=== PATIENT | female | born 1955 | race Caucasian/White ===

== ENCOUNTER 2025-08-27 10:31 | Observation (INO) | payer MEDICARE, SELFPAY ==
[2025-08-27] VITALS (26 sets, daily range): BP systolic 130–201; BP diastolic 67–157; PULSE 69–97; RESP 11–27; TEMP 36.1–36.7; O2SAT 94–100; BMI 48.5; BMI 45.7
--- NOTE | 2025-08-27 11:18 | EKG12_ITS ---
Test Reason : VISION ISSUE Blood Pressure : */* mmHG Vent. Rate : 76 BPM Atrial Rate : 76 BPM P-R Int : 160 ms QRS Dur : 88 ms QT Int : 382 ms P-R-T Axes : 51 15 41 degrees QTcB Int : 429 ms Normal sinus rhythm Normal ECG Confirmed by Artie Boateng ([id number]), newspaper editor RAJENDRA LOZANO ([id number]) on 08/30/2025 1:02:53 PM Referred By: Confirmed By: Artie Boateng
--- NOTE | 2025-08-27 11:38 | EDS_ITS ---
HPI History of Present Illness Chief Complaint: Eye Problem Narrative Narrative: Pt is a 70-year-old female who is presenting to the ER today with chief complaint/concern of left central retinal artery occlusion. Patient woke up yesterday morning, unable to see out of her left eye. Patient was seen and evaluated at the [facility] by Dr. Clifton (sp?) patient was sent to the ER to have a stroke evaluation. Patient blood pressure was elevated in the office as well, 190/110. Patient takes baby aspirin daily, she did not have her aspirin today. Patient has no headache, no pain. Patient has a painless loss of vision to the left eye that occurred yesterday morning, over 24 hours ago. Patient had a complete eye exam in the office and patient's left eye was dilated. Patient did not want her right eye dilated. Patient drove to the office, patient drove to the ER today. She has had no recent falls or head injuries. Patient does take blood pressure medication. Patient states her blood pressure usually averages in the 130s?150s//and from the 80s?100s. Patient has no history of TIA, stroke or vision changes. Patient has minimal vision to the left lower quadrant, otherwise she has complete loss of vision from the left eye. Patient takes blood pressure medication, Lasix, she is not diabetic, does not take cholesterol medication. Patient has chronic bilateral lower extremity lymphedema. She currently has no headache, no chest pain or shortness of breath. No abdominal pain nausea vomiting. No acute complaints. REVIEW OF SYSTEMS: Unless otherwise stated in this report the patient's positive and negative responses for review of systems for constitutional, eyes, ENT, cardiovascular, respiratory, gastrointestinal, neurological, , musculoskeletal, and integument systems and related systems to the presenting problem are either stated in the history of present illness or were not pertinent or were negative for the symptoms and/or complaints related to the presenting medical problem. Nurse's notes and vital signs reviewed. The patient is not hypoxic. Vital signs reviewed and patient is not hypoxic. General: The patient appears well and in no apparent distress. Patient is resting comfortably on cart. Not toxic, lethargic, or listless. Skin: Warm, dry, no pallor noted. There is no rash noted. Head: Normocephalic, atraumatic Eye: Normal conjunctiva, no drainage, EOMI. PERRL. Patient's left eye is dilated, this was done in the office by the eye physician. Patient has minimal vision to the left lower quadrant, otherwise loss of vision in all other mckinnon. Patient has no loss of vision to the right eye. Left eye shows no redness, s welling, no foreign bodies noted. No signs of swelling or infection around the left eye. Ears, Nose, Mouth, and Throat: oral mucosa is moist. Nares patent. Mouth without vesicles. Cardiovascular: Regular Rate and Rhythm, no murmurs, gallops, or rubs Respiratory: Patient is in no distress, no accessory muscle use, lungs are clear to auscultation, no wheezing, rales or rhonchi Back: non-tender, no CVA tenderness bilaterally to percussion. NO CTLS midline or paraspinal tenderness to palpation. GI: Soft, no tenderness to palpation, no masses appreciated. No rebound, guarding, or rigidity noted. Musculoskeletal: The patient has full range of motion of all extremities and joints with no difficulty. Patient has no motor, no sensory deficits. Neurological: A&O x4, normal speech, no focal neurological deficits. NIH 1, 1 for vision of partial hemianopia of the left eye. Patient has no other acute strokelike findings. Psychiatric: [facility] Medical History (Updated 08/27/25 @ 14:[address] Joel Luong, ) Lymphedema Obesity, Class III, BMI 40-49.9 (morbid obesity) CKD stage 3a, GFR 45-59 ml/min HTN (hypertension) Medical History no medical history Home Medications ?Medication ?Instructions ?Recorded ?Last Taken ?Type furosemide 40 mg tablet 20 mg PO DAILY 08/27/25 10/ History ketoconazole 2 % topical cream 1 applic topical Unknown History metoprolol succinate 100 mg 100 mg PO DAILY 08/27/25 1 History tablet,extended release 24 hr naltrexone 4.5 mg capsule (Naltrex) 4.5 mg PO DAILY pa in 08/27/25 Unknown History nystatin 100,000 unit/gram topical 1 applic topical 4X /DAY 08/27/25 Unknown History powder potassium chloride 20 mEq 20 meq PO DAILY 08/27/25 History tablet,extended release(part/cryst) Allergy/AdvReac Type Severity Reaction Status Date / Time metronidazole (From Flagyl) Allergy OTHER Verified 08/27/25 10:34 Family History no significant family his Surgical History no surgical history Social History (Updated 08/27/25 @ 14:[address] Joel Luong, DO) Smoking Status: Current some day smoker tobacco type: cigarettes alcohol intake: current alcohol intake frequency: holidays/special occasions only substance use type: does not use EXAM Physical Exam Const Vital Signs: 08/27/25 10:34 08/27/25 11:33 Temperature 98.1 F Temperature Source Oral Pulse Rate 77 Respiratory Rate 16 Blood Pressure 201/104 H Blood Pressure Mean 136 Pulse Ox 97 Oxygen Delivery Method Room Air Room Air MDM MDM MDM Narrative Medical decision making narrative: Patient seen and examined: Patient to have IV labetalol, patient will have stroke evaluation CT head, CTA head and neck, patient is already had a complete eye examination at the physician office. Differential diagnosis includes but is not limited to: Left eye retinal central artery occlusion, TIA, stroke, hypertensive emergency, ACS, Relevant laboratory interpretation: Patient's BUN and creatinine were 26/1.26. Radiological studies: CT of the head, CTA of the head and neck showed no acute findings. Patient was made aware of the small 6 mm questionable aneurysm. She was given copies of her reports as well. Reevaluation: 1200 I have spoken to the stroke neurologist from [facility], Dr. Peterson. He recommended the patient may stay at [facility], to give patient aspirin, perform cholesterol workup and possibly start her on a statin, and perform MRI of the brain. Patient was given 1 dose of labetalol, her blood pressure has maintained in appropriate range since labetalol was given. Patient was given the CARBOGEN therapy by respiratory staff which was helpful. Patient believes that her eyesight has slightly improved the left lower quadrant and left lateral quadrant of her left eye. Social barriers to healthcare: There are no food insecurities, there is no issue with transportation, there are no insurance barriers Disposition: Patient will be admitted for further evaluation and testing. According to policy [facility], patient will receive CARBOGEN therapy. This is a policy that is set up for central retinal artery occlusion. 1150 Stroke [facility] neuro has been paged to discuss patient's case. 1200 I have spoken to stroke neurologist, Dr. Peterson Report is been given to Dr. Luong. He agrees with admission and saw and evaluated the patient in the ER. Critical care time 35 minutes exclusive from separate billable procedures that were performed. The following was considered in the determination of critical care but not limited to the level of medical decision making, intensive cardiac and/or respiratory monitoring, frequent vital sign monitoring, evaluation of laboratory studies, evaluation of radiographic studies, oxygen monitoring, and constant monitoring and speaking to family at bedside Discharge Plan Dx/Rx/DC Orders Clinical Impression: Central retinal artery occlusion of left eye, Hypertensive emergency Disposition Disposition: Acute Care [facility] Discharge Date/Time: 08/27/25 15:53
--- NOTE | 2025-08-27 12:04 | CPS ---
BP at start of Carbogen: 183/90 5 minutes of Carbogen:178/95 10 minutes of Carbogen: 176/76 15 minutes of therapy: error on cuff x 3 Patient denies and sob or dizziness.
[2025-08-27 12:09] LABS: Hematocrit 38.5 % (37-47); Hemoglobin 12.4 g/dL (12.0-15.0); Immature Granulocytes Count 0.060 X10^3/uL (0.0-0.0); Mean Corp Hgb Conc 32.2 g/dL (32-36); Mean Corpuscular Volume 94.1 fL (81-99); Mean Platelet Vol. 10.3 fl (6.2-12.0); NRBC Flagged by Analyzer 0 % (0-5); Platelet Count 374 K/mm3 (150-450); RBC Distribution Width CV 14.2 % (11.6-14.6); RBC Distribution Width SD 49.5 fl (35.1-43.9); Red Blood Count 4.09 M/mm3 (4.2-5.4); White Blood Count 10.4 K/mm3 (4.4-11.0)
[2025-08-27 12:13] LABS: Prothrombin Time (Protime)PT. 14.6 SECONDS (11.7-14.9)
[2025-08-27 12:14] LABS: Partial Thromboplast Time 27.9 Seconds (24.1-36.2)
--- NOTE | 2025-08-27 12:17 | CT_ITS ---
PROCEDURE: STROKE CTA HEAD AND NECK W/CON 08/27/2025 REASON FOR EXAM: NEURO DEFICIT, ACUTE, STROKE SUSPECTED TECHNIQUE: Procedure Code: CTCTA.ST.HN Modality: CT Procedure: STROKE CTA HEAD AND NECK W/CON Multiplanar Sagittal and Coronal images were obtained. CONTRAST: Isovue 370 VOLUME: 98 mL One or more dose reduction techniques were used (e.g., Automated exposure control, adjustment of the mA and/or kV according to patient size, use of iterative reconstruction technique). RADIATION DOSE SUMMARY: CTDlvol: 44.99 mGy DLP: 1710.44 mGycm COMPARISON: CT head from the same day FINDINGS: Intracranial structures are grossly unremarkable. Orbits are unremarkable. Paranasal sinuses and mastoid air cells are clear. Facial soft tissues and salivary glands are unremarkable. The thyroid gland is unremarkable aside from a 1.1 cm nodule on the left. No neck adenopathy. The visualized superior mediastinum and heart is unremarkable. Lung apices are clear. Cervical fusion hardware is noted. Multilevel degenerative disc disease is present. Regarding the vasculature, the aorta is unremarkable. The subclavian arteries are grossly unremarkable. The common carotid arteries are generally patent although there is mild potentially congenital narrowing on the right on image 184, series 5. This is in an area of sharp angulation however. The remainder of the common carotid artery on the right is patent and unremarkable in the neck. The left common and internal carotid artery is widely patent. The vertebral arteries in the neck are widely patent. Intracranially, the vertebrobasilar system is unremarkable with the right vertebral artery likely being dominant. The basilar artery is patent. The posterior cerebral arteries are widely patent bilaterally. The posterior communicating artery on the right is patent. It is not well seen on the left. There is mild calcification involving the carotid siphon region bilaterally. I do question an aneurysm involving the cavernous portion of the right internal carotid artery measuring up to 6 mm on image 406, series 607. It is possible this just represents tortuosity of the vessel however. Also probably present on image 120, series 607.2. The middle cerebral arteries are slightly disease bilaterally although with no definite focal stenosis present. The A1 and A2 segments of the anterior cerebral arteries are grossly patent. There may be mild narrowing of the A2 segment on the left on image 461, series 5, although this is fairly distal. The anterior communicating artery is grossly unremarkable. Please note that the ophthalmic arteries are seen bilaterally and are grossly patent. I can not definitively identify the central retinal artery on this study. The globes are grossly intact. CT/STROKE CTA Head AND Neck W/Con IMPRESSION: No definite large vessel occlusion. I do question a possible 6 mm right ICA an eurysm in the cavernous portion, although vessel tortuosity may play a role in this appearance. The ophthalmic arteries are grossly patent bilaterally. The central retinal ar teries are not definitively identified. Please see above for additional findings. Reading Location[facility]
--- NOTE | 2025-08-27 12:17 | CT_ITS ---
PROCEDURE: STROKE BRAIN/HEAD WITHOUT CONT 08/27/2025 REASON FOR EXAM: NEURO DEFICIT, ACUTE, STROKE SUSPECTED The history states left eye vision loss upon waking yesterday. Sent by eye doctor. TECHNIQUE: Procedure Code: CTBR.ST Modality: CT Procedure: STROKE BRAIN/HEAD WITHOUT CONT Coronal and Sagittal reconstruction series were provided. One or more dose reduction techniques were used (e.g., Automated exposure control, adjustment of the mA and/or kV according to patient size, use of iterative reconstruction technique. RADIATION DOSE SUMMARY: CTDlvol: 44.99 mGy DLP: 1710.44 mGycm COMPARISON: None FINDINGS: There is no acute intracranial hemorrhage or mass effect noted. 4 the ventricles and cortical sulci are grossly unremarkable. There is some faint low-attenuation in the patricia on the left on image 13, series 2 which I suspect is artifactual and/or related to volume averaging. Mild atherosclerotic calcifications are noted in the carotid siphon region bilaterally as well as likely involving the distal vertebral arteries. The orbits are grossly unremarkable. The paranasal sinuses and mastoid air cells are clear. The calvarium is intact. CT/STROKE Brain/Head without Cont IMPRESSION: No acute intracranial process. If concern for CVA persists, I recommend MRI wi th diffusion-weighted imaging. Reading Location: [facility]
[2025-08-27 12:41] LABS: Anion Gap 11 (5-15); BUN 26 mg/dL (4-19); BUN/Creat Ratio 20.3 RATIO (10-20); Calcium,Total 9.2 mg/dL (7.6-11.0); Carbon Dioxide 24.5 mmol/L (21.0-32.0); Chloride 104 mmol/L (98-108); Estimated Creatinine Clearance 56.78 ml/min (50-250); Glucose 102 mg/dL (70-99); Potassium 4.6 mmol/L (3.3-5.1); Troponin T High Sensitivity 10 ng/L (<=14)
--- NOTE | 2025-08-27 13:00 | CPS ---
Carbogen treatment #2: initial BP: 151/87 BP after 5 minutes: 132/87 BP after 15 minutes: 151/90 Patient denies any SOB or dizziness.
--- NOTE | 2025-08-27 14:15 | CPS ---
Carbogen treatment #3 Initial BP: 172/86 after 10 minutes: 170/102 Patient denies any SOB or dizziness.
--- NOTE | 2025-08-27 14:48 | ECHOD_ITS ---
Reason For Study Reason For Study: TIA/CVA Procedure This was a 2D Doppler, Color Flow transthoracic echocardiogram. Exam performed portable in ED. Left Ventricle Normal LV size. Mild concentric left ventricular hypertrophy. The left ventricular ejection fraction is 65 %. Stage 1 diastolic dysfunction. No regional wall motion abnormalities noted. Right Ventricle Normal RV size. Normal systolic function. Atria The left atrium is mildly enlarged. Normal right atrium. Mitral Valve There is moderate mitral annular calcification. Mild (1+) mitral valve insufficiency. Tricuspid Valve Normal tricuspid valve. Mild (1+) tricuspid valve insufficiency. Pulmonary artery systolic pressure is 34 mmHg. Aortic Valve Trisinus/trileaflet aortic valve. Mild focal aortic valve calcification. Pulmonic Valve Normal pulmonic valve. Trivial pulmonic valve insufficiency. Great Vessels Normal aortic root. The pulmonary artery is normal size. Inferior vena cava collapse with sniff. Pericardium/Pleural No pericardial effusion. MMode/2D Measurements & Calculations LVIDd: 4.7 cm IVSd: 1.2 cm LVOT diam: 2.0 cm LVIDs: 1.6 cm LVPWd: 1.2 cm LVOT area: 3.2 cm2 RVDd: 3.8 cm FS: 65.5 % Ao root diam: 3.5 cm LAV(MOD-bp): 71.9 ml LVAd ap4: 27.8 cm2 LAV(MOD-bp) Indexed: 31.7 ml/m2 LVLd ap4: 8.1 cm LAV(MOD-sp2): 59.7 ml EDV(MOD-sp4): 79.2 ml LAV(MOD-sp4): 85.8 ml EDV(sp4-el): 81.4 ml LVAs ap4: 15.4 cm2 LVLs ap4: 7.1 cm ESV(MOD-sp4): 28.2 ml ESV(sp4-el): 28.2 ml EF(MOD-sp4): 64.4 % EF(sp4-el): 65.3 % LVAd ap2: 29.7 cm2 SV(MOD-sp4): 51.0 ml SV(MOD-sp2): 57.1 ml LVLd ap2: 8.1 cm SI(MOD-sp4): 22.5 ml/m2 SI(MOD-sp2): 25.2 ml/m2 EDV(MOD-sp2): 90.9 ml EDV(sp2-el): 92.2 ml LVAs ap2: 16.4 cm2 LVLs ap2: 6.9 cm ESV(MOD-sp2): 33.9 ml ESV(sp2-el): 33.1 ml EF(MOD-sp2): 62.8 % SV(sp4-el): 53.2 ml LA A4 area: 25.4 cm2 RA A4 area: 17.0 cm2 TAPSE: 2.0 cm Time Measurements MV dec time: 0.22 sec Doppler Measurements & Calculations MV E max skyler: 99.2 cm/sec Lat Peak E' Skyler: 7.1 cm/sec Med Peak E' Skyler: 8.3 cm/sec MV A max skyler: 117.9 cm/sec E/E' lat: 14.0 E/E' med: 12.0 MV E/A: 0.84 MV dec slope: 447.6 cm/sec2 Ao V2 max: 207.7 cm/sec LV V1 max: 139.6 cm/sec Ao max P.3 mmHg LV V1 max P.8 mmHg Ao V2 mean: 141.4 cm/sec LV V1 mean P.4 mmHg Ao mean P.0 mmHg LV V1 mean: 98.0 cm/sec Ao V2 VTI: 45.8 cm LV V1 VTI: 32.2 cm AV (velocity ratio): 0.70 CECE(I,D): 2.3 cm2 CECE(V,D): 2.2 cm2 SV(LVOT): 103.6 ml PA V2 max: 102.5 cm/sec TR max skyler: 281.8 cm/sec TR max P.8 mmHg ECHO/Echo Complete Interpretation Summary Normal LV size. The left ventricular ejection fraction is 65 %. Mild concentric left ventricular hypertrophy. Stage 1 diastolic dysfunction. Mild (1+) mitral valve insufficiency. There is moderate mitral annular calcification. Pulmonary artery systolic pressure is 34 mmHg. Ordering Physician: Joel Luong Referring Physician: Gloria Marrero Performed By: Monserrat Rocha RDCS
--- NOTE | 2025-08-27 14:48 | MRI_ITS ---
PROCEDURE: MRI BRAIN WITHOUT CONTRAST 08/27/2025 REASON FOR EXAM: LEFT CENTRAL RETINAL ARTERY OCCLUSION. TECHNIQUE: Procedure Code: MRIBR Modality: MR Procedure: BRAIN WITHOUT CONTRAST Multiplanar and multisequential MRI of the brain was performed without contrast. COMPARISON: CT head/angiography earlier same day. FINDINGS: No regions of abnormal restricted diffusion to indicate recent infarct. Ventricular and sulcal size and configuration are within normal limits. No evidence of intracranial hemorrhage, extra-axial collection, mass-effect, or other acute abnormality. Mild scattered foci of leukoaraiosis in the cerebral white matter, age-appropriate. Major intracranial vascular flow voids appear preserved. Unremarkable appearance of the orbits. Well-aerated paranasal sinuses and bilateral mastoid air cells. MRI/Brain without Contrast IMPRESSION: No acute intracranial abnormality; no acute infarct. Reading Location: [id number]
--- NOTE | 2025-08-27 14:49 | HP.PCM.HOS_ITS ---
[facility] - General General Date of Service: 08/27/25 Chief Complaint: Left eye vision loss [facility] Narrative ALO GILLESPIE, is a 70 F who presents with left eye vision loss. This is a 70-year-old female with a history of hypertension presents with a 1 day history of left eye visual loss. Symptoms began on the but saw inventory specialist manager today who diagnosed her with a left central retinal artery occlusion and sent her to the emergency department. She said that her vision in her left eye was all dark though it has since improved on the lateral aspect of her visual field on the left eye. No right eye problems. She denies any other symptoms, no paresthesias, no headache no weakness. This has never happened before. She was evaluated by [facility] (note is currently pending but per the emergency room physician, recommended full dose aspirin which she did receive emergency room).[ ] [facility] Medical History (Updated 08/27/25 @ 14:[address] Joel Luong DO) Lymphedema Obesity, Class III, BMI 40-49.9 (morbid obesity) CKD stage 3a, GFR 45-59 ml/min HTN (hypertension) Medical History no medical history Home Medications ?Medication ?Instructions ?Recorded ?Last Taken ?Type furosemide 40 mg tablet 20 mg PO DAILY 08/27/25 10/3 History ketoconazole 2 % topical cream 1 applic topical Unknown History metoprolol succinate 100 mg 100 mg PO DAILY 08/27/25 1 History tablet,extended release 24 hr naltrexone 4.5 mg capsule (Naltrex) 4.5 mg PO DAILY pa in 08/27/25 Unknown History nystatin 100,000 unit/gram topical 1 applic topical 4X /DAY 08/27/25 Unknown History powder potassium chloride 20 mEq 20 meq PO DAILY 08/27/25 History tablet,extended release(part/cryst) Allergy/AdvReac Type Severity Reaction Status Date / Time metronidazole (From Flagyl) Allergy OTHER Verified 08/27/25 10:34 Family History no significant family his Surgical History no surgical history Social History (Updated 08/27/25 @ 14:[address] Joel Luong DO) Smoking Status: Current some day smoker tobacco type: cigarettes alcohol intake: current alcohol intake frequency: holidays/special occasions only substance use type: does not use ROS ROS Narrative Chronically fatigued. Does have chronic swelling in her lower extremities that is not been sufficiently helped by furosemide. All review of systems were negative except as mentioned above in the history of present illness and the other review of systems. Vital Signs Vital Signs Vital Signs: 08/27/25 10:34 08/27/25 11:18 08/27/25 11:33 Temperature 36.7 C Temperature Source Oral Pulse Rate 77 93 Respiratory Rate 16 17 Respiratory Pattern Blood Pressure 201/104 H 183/90 H Blood Pressure Mean 136 121 Pulse Ox 97 95 Oxygen Delivery Method Room Air Room Air Room Air 08/27/25 11:48 08/27/25 11:50 08/27/25 12:00 Temperature Temperature Source Pulse Rate 86 88 76 Respiratory Rate 20 H 19 H 11 L Respiratory Pattern Normal Blood Pressure 183/90 H 183/90 H 176/76 H Blood Pressure Mean 121 109 Pulse Ox 99 96 100 Oxygen Delivery Method 08/27/25 12:02 08/27/25 12:05 08/27/25 12:15 Temperature Temperature Source Pulse Rate 76 85 97 Respiratory Rate 14 15 18 Respiratory Pattern Blood Pressure 194/157 H Blood Pressure Mean 169 Pulse Ox 100 100 94 Oxygen Delivery Method 08/27/25 12:16 08/27/25 12:17 08/27/25 12:30 Temperature Temperature Source Pulse Rate 90 89 90 Respiratory Rate 27 H 18 20 H Respiratory Pattern Blood Pressure 176/76 H 164/77 H Blood Pressure Mean 109 102 Pulse Ox 94 98 96 Oxygen Delivery Method Room Air 08/27/25 12:45 08/27/25 13:00 08/27/25 13:00 Temperature Temperature Source Pulse Rate 77 71 77 Respiratory Rate 14 15 16 Respiratory Pattern Normal Blood Pressure 149/71 H 151/87 H 151/87 H Blood Pressure Mean 91 105 Pulse Ox 96 100 100 Oxygen Delivery Method 08/27/25 13:07 08/27/25 13:15 08/27/25 13:30 Temperature Temperature Source Pulse Rate 74 Respiratory Rate 16 Respiratory Pattern Blood Pressure 132/87 H 151/90 H Blood Pressure Mean 99 108 Pulse Ox 100 97 Oxygen Delivery Method 08/27/25 13:45 08/27/25 14:00 08/27/25 14:00 Temperature Temperature Source Pulse Rate 72 78 75 Respiratory Rate 17 16 15 Respiratory Pattern Blood Pressure 166/88 H 172/86 H 172/86 H Blood Pressure Mean 111 114 111 Pulse Ox 98 97 98 Oxygen Delivery Method Room Air 08/27/25 14:05 Temperature Temperature Source Pulse Rate 77 Respiratory Rate 18 Respiratory Pattern Normal Blood Pressure 172/86 H Blood Pressure Mean Pulse Ox 100 Oxygen Delivery Method Weight Weight: 128.367 kg Body Mass Index (BMI) 48.5 Physical Exam Narrative - Physical Exam General: Alert, Oriented x3, Cooperative HEENT: Atraumatic, PERRLA, EOMI, Normocephalic. Left eye visual field is tingling. Patient is only able to see movement in her left lateral field. Does not see anything immediately Oral: Moist Mucosa, No Gingival or Mucosal Lesions/ Ulcerations Neck: Supple, No JVD, Negative Carotid Bruits Lungs: Clear to auscultation, Normal air movement Cardiovascular: Regular rate, Normal S1, Normal S2, No murmurs Abdomen: Bowel Sounds Present, Soft, Non Tender, Non-Distended, No Hepato- splenomegaly Extremities: No clubbing, No cyanosis, Capillary Refill Less than 3 Seconds, lymphedematous changes in the lower extremities bilaterally Skin: No rashes, No breakdown Musculoskeletal: No Tenderness to Palpation of Joints or Extremities Neurological: Neuro grossly intact Psych/Mental Status: Normal Affect, Appropriate Results Lab / Micro Data Attestation: I reviewed the patient's lab results. 08/27/25 11:58 08/27/25 11:58 Labs: Laboratory Results - last 24 hr 08/27/25 11:48: POC Glucose 97 08/27/25 11:58: WBC 10.4, RBC 4.09 L, Hgb 12.4, Hct 38.5, MCV 94.1, MCH 30.3, MCHC 32.2, RDW Std Deviation 49.5 H, RDW Coeff of Johnathon 14.2, Plt Count 374, MPV 10.3, Immature Gran % (Auto) 0.600, Neut % (Auto) 76.0 H, Lymph % (Auto) 14.4 L, [place] % (Auto) 7.4, Eos % (Auto) 0.7, Baso % (Auto) 0.9, Absolute Neuts (auto) 7.9 H, Absolute Lymphs (auto) 1.50, Nucleated RBC % 0, ESR 28, PT 14.6, INR 1.1, APTT 27.9, Sodium 139, Potassium 4.6, Chloride 104, Carbon Dioxide 24.5, Anion Gap 11, BUN 26 H, Creatinine 1.26 H, Estim Creat Clear Calc 56.78, Est GFR (MDRD) Non-Af 47 L, BUN/Creatinine Ratio 20.3 H, Glucose 102 H, Calcium 9.2, Troponin T High Sens 10 EKG Initial EKG: Attestation: I personally reviewed and interpreted this EKG as follows: Prior EKG tracings: available for review EKG Rhythm Intrepretation: Sinus Rhythm Imaging Radiology Impression Brain CT 08/27/25 12:17 IMPRESSION: No acute intracranial process. If concern for CVA persists, I recommend MRI with diffusion-weighted imaging. Reading Location: [facility] Head/Neck CTA 08/27/25 12:17 IMPRESSION: No definite large vessel occlusion. I do question a possible 6 mm right ICA aneurysm in the cavernous portion, although vessel tortuosity may play a role in this appearance. The ophthalmic arteries are grossly patent bilaterally. The central retinal arteries are not definitively identified. Please see above for additional findings. Reading Location: [facility] Assessment & Plan Assessment/Plan (1) Central retinal artery occlusion of left eye: PLAN: Patient underwent head CT and CTA of the head and neck that showed no acute process. Plan is to get an MRI of the brain, 2D echocardiogram. Patient is outside of the window for TNK given late presentation. Neurology evaluated the emergency room and recommended full dose aspirin which we will continue. Continuation of consult to [facility]. Check a fasting lipid panel. Patient will need to follow-up with ophthalmology as outpatient PLAN: Plan Hypertension: Continue with furosemide and metoprolol succinate. As needed hydralazine. Chronic medical conditions * Obesity class III: Complicates care and recovery. * Lymphedema: I am concerned the patient to have pulmonary artery hypertension. Will check the echocardiogram. Continue with furosemide. * Tobacco use: Patient has cut back significantly but only smokes 2 to 3 cigarettes/week. She states that she is actively trying to change her habit to reduce her cigarette consumptionfurther VTE prophylaxis: Low risk given current observation status. CODE STATUS: Addressed with the patient. Patient wishes to be full code Charges/Coding Visit Charges Inpatient E&M: 10429 Init Hosp L2
--- NOTE | 2025-08-27 15:18 | CPS ---
Carbogen treatment #4 Initial BP: 162/78 After 5 minutes: 176/107 After treatment: 179/92 Patient denies sob/ dizziness. Patient does reports slight improvement in vision.
[2025-08-28 03:35] VITALS: BP 139/72; PULSE 84; RESP 18; TEMP 35.8; O2SAT 98
[2025-08-28 08:05] LABS: Cholesterol 166 mg/dL (<=200); Low Density Lipoprotein Calc. 88 mg/dL; Triglycerides 163 mg/dL; Very Low Density Lipoprotein 33 mg/dL (5-40); cholesterol:hdl ratio screen 3.31
[2025-08-28 08:08] LABS: CRP, High Sensitivity 3.48 mg/L (0.00-3.00)
[2025-08-28 08:29] LABS: Anion Gap 9 (5-15); BUN 24 mg/dL (4-19); BUN/Creat Ratio 18.3 RATIO (10-20); Calcium,Total 8.6 mg/dL (7.6-11.0); Carbon Dioxide 23.6 mmol/L (21.0-32.0); Chloride 106 mmol/L (98-108); Estimated Creatinine Clearance 53.08 ml/min (50-250); Glucose 98 mg/dL (70-99); Potassium 5.3 mmol/L (3.3-5.1)
--- NOTE | 2025-08-28 08:51 | DCINST_ITS ---
Discharge Instructions DC O2, CPAP, BIPAP needs Home O2 Discharge instructions: No Dressing / Incision Discharge Activity: Return to Normal Activity Weight Bearing Status: Weight bearing as tolerated Dressing / Incision Call your doctor if you observe: Fever of 101 or Higher, Coldness, Increased Pain, Numbness or Tingling, Change in Color, Inability to urinate, Inability to have a bowel movement, Shortness of breath, Dizziness, Fainting spells, Swelling in the ankles, Chest pain, Prolonged hiccupping, Increased palpitations (irregular heartbeat) and Calf discomfort Follow Up Care When: IN 2 WEEKS Test Results: Test results from this visit will be discussed in further detail at your follow- up appointment, if applicable. Discharge Plan Admission Admit Date/Time: 08/27/25 14:43 Primary Reason for Your Visit: Left eye vision loss. Partial recovery Attending Provider: Se Montenegro Primary Care Provider: Gloria Marrero Consulting Providers: Fadi Stone; Blayne Damon; Mima Palacio; Michelle Santillan; Tabby Limon; Mynor Peterson; Osiris Lau; Vitaly Navas; Rivas Lopez; Dereck Willett; Ana Villalpando; Lillie Bearden; Gunnar Echols; Jolanta Segura; Simon Feliz; Lydia Cotton; Dimas Green; Amisha Georges; Raciel Cordero; Audra García; Flor Azevedo; Joel Luong Instructions Additional Instructions / Restrictions: Follow-up on neurologist Discharge Orders/Prescriptions Prescriptions: New aspirin 325 mg Tablet 325 mg PO BREAKFAST 30 Days Qty: 30 1RF Continued furosemide 40 mg tablet 20 mg PO DAILY ketoconazole 2 % cream 1 applic topical BID metoprolol succinate 100 mg tablet extended release 24 hr 100 mg PO DAILY potassium chloride 20 mEq tablet,ER particles/crystals 20 meq PO DAILY nystatin 100,000 unit/gram powder 1 applic topical 4X/DAY PRN (Reason: yeast) Naltrex 4.5 mg capsule 4.5 mg PO DAILY Referrals / Follow Up: Gloria Marrero MD [Primary Care Provider, Pediatrics] Rod Escamilla MD [Non-Staff -Ordering Privileges, Neurology] - Within 1 Month Jong Fox MD [Med Staff - Active Staff, Opthamology] - Within 1 Week Disposition Disposition (needs filled in before D/C Order can be placed): Home, Self Care
--- NOTE | 2025-08-28 08:56 | PCM.DC.SUM ---
Providers Date of Admission: 08/27/25 Date of Discharge: 08/28/25 Primary Care Physician: Dr. Gloria Marrero MD Consultations 08/27/25 14:48 Consult: Tele-Neurology Stat Consulting Provider: [facility] Reason for Consult: Acute Ischemic Stroke/TIA EMERGENT Consult: No MD Notified: Yes Date Notified: 08/27/25 Time Notified: 14:45 Method of Notification: ED Physician Initiated Nursing Unit Staff Notify [facility] of Tele-Neurology Consult: Yes Reason For Visit: LEFT CENTRAL RETINAL ARTERY OCCLUSION Diagnosis Discharge Diagnosis (1) Central retinal artery occlusion of left eye: Status: Acute Code(s): H34.12 - Central retinal artery occlusion, left eye Plan Patient was admitted with 1 day history of decreased left eye peripheral vision. No right eye problem She was admitted in PCU. 1. Left eye central retinal occlusion: Patient underwent head CT and CTA of the head and neck that showed no acute process. MRI brain which did not show acute intracranial abnormality. 2D echo was done. Lipid profile within normal limit. Acute stroke ruled out. Most likely patient has local central retinal artery occlusion of left eye but is planned. Neurologist saw in the ED and recommended 325 mg oral daily and patient was given prescription for that. Advised follow-up with abdominal Dr. Fox in next 2 to 3 days. On vehicle monitor technician normal sinus rhythm. Hypertension: Continue with furosemide and metoprolol succinate. As needed hydralazine. Blood pressure elevated 150/75-151/87. Prescription for lisinopril ordered. Echo shows EF 65% with mild concentric LVH, mild MR stage I diastolic function suggestive of mild chronic HFpEF. Obesity class III: Complicates care and recovery. Lymphedema: Continue with furosemide. PASP 34 mmHg suggestive of mild pulmonary hypertension Tobacco use: Patient has cut back significantly but only smokes 2 to 3 cigarettes/week. She states that she is actively trying to change her habit to reduce her cigarette consumptionfurther VTE prophylaxis: Low risk given current observation status. Discharge medication reconciliation done. Discharge follow-up instructions completed. Discharge process discussed with the patient and all questions were answered to patient's satisfaction. Follow with PCP in 1 to 2 weeks Total time spent, exact 35 minutes on discharge meds reconciliation, examination, coordination of care with nurses and ancillary staff, review of imaging and blood test and discussion with the patient on follow-up instructions. 2D echo 08/27/2025 Interpretation Summary Normal LV size. The left ventricular ejection fraction is 65 %. Mild concentric left ventricular hypertrophy. Stage 1 diastolic dysfunction. Mild (1+) mitral valve insufficiency. There is moderate mitral annular calcification. Pulmonary artery systolic pressure is 34 mmHg. Medications at Discharge Home Medications furosemide 40 mg tablet 20 mg PO DAILY diuretic 08/27/25 ketoconazole 2 % topical cream 1 applic topical BID legs 08/27/25 metoprolol succinate 100 mg tablet,extended release 24 hr 100 mg PO DAILY heart 08/27/25 naltrexone 4.5 mg capsule (Naltrex) 4.5 mg PO DAILY pain 08/27/25 nystatin 100,000 unit/gram topical powder 1 applic topical 4X/DAY PRN yeast 08/27/25 potassium chloride 20 mEq tablet,extended release(part/cryst) 20 meq PO DAILY suppliment 08/27/25 aspirin 325 mg tablet 325 mg PO BREAKFAST 30 days #30 tabs 08/28/25 Hospital Course Summary of Care Provided Hospital Course: Clinical Impression(s) from Imaging Studies Brain CT 08/27/25 12:17 IMPRESSION: No acute intracranial process. If concern for CVA persists, I recommend MRI with diffusion-weighted imaging. Reading Location: [facility] Head/Neck CTA 08/27/25 12:17 IMPRESSION: No definite large vessel occlusion. I do question a possible 6 mm right ICA aneurysm in the cavernous portion, although vessel tortuosity may play a role in this appearance. The ophthalmic arteries are grossly patent bilaterally. The central retinal arteries are not definitively identified. Please see above for additional findings. Reading Location: [facility] Brain MRI 08/27/25 14:48 IMPRESSION: No acute intracranial abnormality; no acute infarct. Reading Location: [facility] Echocardiogram 08/27/25 14:48 Interpretation Summary Normal LV size. The left ventricular ejection fraction is 65 %. Mild concentric left ventricular hypertrophy. Stage 1 diastolic dysfunction. Mild (1+) mitral valve insufficiency. There is moderate mitral annular calcification. Pulmonary artery systolic pressure is 34 mmHg. Ordering Physician: Joel Luong Referring Physician: Gloria Marrero Performed By: Monserrat Rocha RDCS Physical Exam Narrative Seen and examined Patient still has decreased/fuzzy vision on left peripheral vision. 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 Atraumatic, PERRLA, EOMI, Normocephalic. Oral: No Gingival or Mucosal Lesions/ Ulcerations Neck: Supple, No JVD, Negative Carotid Bruits Chest wall/Lungs: Air entry diminished in bilateral lung bases. No crepitation/rhonchi Cardiovascular: Regular rate and rhythm, Normal S1,S2, No M/G/R Abdomen: Bowel Sounds Present, Soft, Non Tender, Non-Distended : No dysuria. No renal angle tenderness. No suprapubic tenderness. Extremities: No edema, Capillary Refill Less than 3 Seconds Skin: No rashes, No breakdown Musculoskeletal: No Tenderness to Palpation of Joints or Extremities Neurological: Cranial nerves II-XII grossly intact, DTR 2+/4. No acute focal neurological deficit. Psych/Mental Status: Normal Affect, Appropriate. Weight / BMI Weight Weight: 266 lb 8.622 oz Body Mass Index (BMI) 45.7 ABG / Lab / Microbiology Data 08/27/25 11:58 08/28/25 07:08 Laboratory: Laboratory Results - last 24 hr 08/27/25 11:58: Sodium 139, Potassium 4.6, Chloride 104, Carbon Dioxide 24.5, Anion Gap 11, BUN 26 H, Creatinine 1.26 H, Estim Creat Clear Calc 56.78, Est GFR (MDRD) Non-Af 47 L, BUN/Creatinine Ratio 20.3 H, Glucose 102 H, Calcium 9.2, Troponin T High Sens 10, C-React Prot High Sens 3.48 H 08/28/25 07:08: Sodium 138, Potassium 5.3 H, Chloride 106, Carbon Dioxide 23.6, Anion Gap 9, BUN 24 H, Creatinine 1.30 H, Estim Creat Clear Calc 53.08, Est GFR (MDRD) Non-Af 45 L, BUN/Creatinine Ratio 18.3, Glucose 98, Calcium 8.6, Triglycerides 163, Cholesterol 166, LDL Cholesterol, Calc 88, VLDL Cholesterol 33, HDL Cholesterol 50, Cholesterol/HDL Ratio 3.31 Radiography Diagnostic Testing: Radiology Impression Brain CT 08/27/25 12:17 IMPRESSION: No acute intracranial process. If concern for CVA persists, I recommend MRI with diffusion-weighted imaging. Reading Location: [facility] Head/Neck CTA 08/27/25 12:17 IMPRESSION: No definite large vessel occlusion. I do question a possible 6 mm right ICA aneurysm in the cavernous portion, although vessel tortuosity may play a role in this appearance. The ophthalmic arteries are grossly patent bilaterally. The central retinal arteries are not definitively identified. Please see above for additional findings. Reading Location: [facility] Brain MRI 08/27/25 14:48 IMPRESSION: No acute intracranial abnormality; no acute infarct. Reading Location: [facility] Echocardiogram 08/27/25 14:48 Interpretation Summary Normal LV size. The left ventricular ejection fraction is 65 %. Mild concentric left ventricular hypertrophy. Stage 1 diastolic dysfunction. Mild (1+) mitral valve insufficiency. There is moderate mitral annular calcification. Pulmonary artery systolic pressure is 34 mmHg. Ordering Physician: Joel Luong Referring Physician: lGoria Marrero Performed By: Monserrat Rocha, VASU D/C Instructions Weight Bearing Status: Weight bearing as tolerated Call your doctor if you observe: Fever of 101 or Higher, Coldness, Increased Pain, Numbness or Tingling, Change in Color, Inability to urinate, Inability to have a bowel movement, Shortness of breath, Dizziness, Fainting spells, Swelling in the ankles, Chest pain, Prolonged hiccupping, Increased palpitations (irregular heartbeat) and Calf discomfort DC O2, CPAP, BIPAP Needs Home O2 Discharge instructions: No When: IN 2 WEEKS Meaningful Use Info Meaningful Use Meaningful Use Diagnoses (Choose all that apply): None applicable Discharge Plan Admission Admit Date/Time: 08/27/25 14:43 Primary Reason for Your Visit: Left eye vision loss. Partial recovery Attending Provider: Se Montenegro Primary Care Provider: Gloria Marrero Consulting Providers: Fadi Stone; Blayne Damon; Mima Palacio; Michelle Santillan; Tabby Limon; Mynor Peterson; Osiris Lau; Vitaly Navas; Rivas Lopez; Dereck Willett; Ana Villalpando; Lillie Bearden; Gunnar Echols; Jolanta Segura; Simon Feliz; Lydia Cotton; Dimas Green; Amisha Georges; Raciel Cordero; Audra García; Flor Azevedo; Joel Luong Instructions Additional Instructions / Restrictions: Follow-up on neurologist Discharge Orders/Prescriptions Prescriptions: New aspirin 325 mg Tablet 325 mg PO BREAKFAST 30 Days Qty: 30 1RF Continued furosemide 40 mg tablet 20 mg PO DAILY ketoconazole 2 % cream 1 applic topical BID metoprolol succinate 100 mg tablet extended release 24 hr 100 mg PO DAILY potassium chloride 20 mEq tablet,ER particles/crystals 20 meq PO DAILY nystatin 100,000 unit/gram powder 1 applic topical 4X/DAY PRN (Reason: yeast) Naltrex 4.5 mg capsule 4.5 mg PO DAILY Referrals / Follow Up: Gloria Marrero MD [Primary Care Provider, Pediatrics] oRd Escamilla MD [Non-Staff -Ordering Privileges, Neurology] - Within 1 Month Jong Fox MD [Med Staff - Active Staff, Opthamology] - Within 1 Week Disposition Disposition (needs filled in before D/C Order can be placed): Home, Self Care Charges/Coding Visit Charges Inpatient E&M: 86584 Disch Hosp >30min
[2025-08-28 10:00] VITALS: BP 151/87; PULSE 65; RESP 18; TEMP 36.7; O2SAT 99
[2025-08-28] MEDS: Potassium Chloride Oral Tablet 20 MEQ PO (10:27)
[2025-08-28 10:28] VITALS: BP 151/87; PULSE 65
[2025-08-28] MEDS: 0.9% Normal Saline (1000mL) 1,000 ML 125 ML IV (10:28)
[2025-08-28] MEDS: Metoprolol(XL)Succ 100 MG Tablet PO (10:28)
[2025-08-28 14:42] VITALS: BP 128/74; PULSE 70; RESP 18; TEMP 36.6; O2SAT 98
--- NOTE | 2025-08-28 23:38 | CON.PCM.NE_ITS ---
Assessment and Plan: Stroke Assessment/Plan ALO GILLESPIE is a 70 F with a history of HTN and smoking who presents for evaluation of L vision loss. Went to [facility] locally, diagnosed with CRAO. Here stroke workup unremarkable. Neurological examination shows NIH 0. Neuroimaging shows NO infarct - Anti-platelet medication: Aspirin 81 mg daily - Occupational/ Physical therapy consults - NPO until swallow evaluation. IVF until able to take po - DVT prophylaxis with SCDs and heparin SQ - Vascular risk factor modification. 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 BP management should aim to achieve terminal superintendent contorl in a reasonable amount of time, taking into consideration the individual patient's requirements and characteristics. Weight Management: Goal for BMI is 18.5 -24.9 kg/m2 Alcohol: No more than 2 drinks/day for men or 1 drink/day for non- women - Promote lifestyle modification: weight control, physical activity, moderation of alcohol intake, moderate sodium intake. Followup with PCP in 1-2 weeks, and in Neurology clinic in 6-12 weeks MCT on DC HPI Consult Data Date of Consult: 08/28/25 HPI Narrative HPI Narrative: ALO GILLESPIE, is a 70 F who presents [ ] [facility] Medical History Lymphedema Obesity, Class III, BMI 40-49.9 (morbid obesity) CKD stage 3a, GFR 45-59 ml/min HTN (hypertension) Medical History no medical history Home Medications ?Medication ?Instructions ?Recorded ?Last Taken ?Type furosemide 40 mg tablet 20 mg PO DAILY diuretic 07/3008/26/25 History ketoconazole 2 % topical cream 1 applic topical BID le gs 08/27/25 Unknown History metoprolol succinate 100 mg 100 mg PO DAILY heart 07/3008/27/25 History tablet,extended release 24 hr naltrexone 4.5 mg capsule (Naltrex) 4.5 mg PO DAILY pa in 08/27/25 Unknown History nystatin 100,000 unit/gram topical 1 applic topical 4X /DAY PRN yeast 08/27/25 Unknown History powder potassium chloride 20 mEq 20 meq PO DAILY suppliment 1 08/26/25 History tablet,extended release(part/cryst) aspirin 325 mg tablet 325 mg PO BREAKFAST 30 days #30 08/28/25 Unknown Rx tabs Allergy/AdvReac Type Severity Reaction Status Date / Time metronidazole (From Flagyl) Allergy OTHER Verified 08/27/25 10:34 Family History no significant family his Surgical History no surgical history Social History (Updated 08/27/25 @ 17:42 by Any Perry) housing: house Smoking Status: Current some day smoker tobacco type: cigarettes alcohol intake: current alcohol intake frequency: holidays/special occasions only substance use type: does not use Vital Signs Vital Signs Vital Signs: 08/28/25 03:35 08/28/25 03:35 08/28/25 10:00 Temperature 96.5 F L 98.0 F Temperature Source Temporal Oral Pulse Rate 84 65 Respiratory Rate 18 18 Respiratory Depth Normal Blood Pressure 139/72 H 151/87 H Blood Pressure Mean 94 108 Blood Pressure Source Monitor Monitor Blood Pressure Position Semi-Fowlers Supine Blood Pressure Location Right Arm Right Arm Pulse Ox 98 99 Oxygen Delivery Method Room Air Room Air 08/28/25 10:28 08/28/25 14:42 Temperature 97.8 F Temperature Source Oral Pulse Rate 65 70 Respiratory Rate 18 Respiratory Depth Blood Pressure 151/87 H 128/74 H Blood Pressure Mean 92 Blood Pressure Source Monitor Blood Pressure Position Sitting Blood Pressure Location Left Forearm Pulse Ox 98 Oxygen Delivery Method Room Air Weight Weight: 120.9 kg Body Mass Index (BMI) 45.7 EEG Results Procedure Details EEG Procedure Details: ALO GILLESPIE is a 70 year old F with a past medical history of , who presents for evaluation of Electroencephalogram on DATE at TIME Lab / Micro Data 08/27/25 11:58 08/28/25 07:08 Labs: Laboratory Results - last 24 hr 08/27/25 11:58: C-React Prot High Sens 3.48 H 08/28/25 07:08: Sodium 138, Potassium 5.3 H, Chloride 106, Carbon Dioxide 23.6, Anion Gap 9, BUN 24 H, Creatinine 1.30 H, Estim Creat Clear Calc 53.08, Est GFR (MDRD) Non-Af 45 L, BUN/Creatinine Ratio 18.3, Glucose 98, Calcium 8.6, Triglycerides 163, Cholesterol 166, LDL Cholesterol, Calc 88, VLDL Cholesterol 33, HDL Cholesterol 50, Cholesterol/HDL Ratio 3.31 NIHSS NIHSS Nursing Documentation NIHSS Nursing Documentation: NIHSS: Ischemic Stroke/TIA Start: 08/27/25 16:36 Text: For PCU Patients: NIH and Neuro Check every 4 Status: Complete hours, PRN and with change in RN caregiver. Freq: [id number] Protocol: Activity Type Activity Date Activity User E-sign Co-sign Detail Recorded Client Recorded Date Recorded By Document 08/27/25 17:22 DS [id number] 08/27/25 17:47 DS 08/27/25 17:22 NIH Stroke Scale [NIHSS] A score of 0 is normal or asymptomatic . Total possible score is 42. Inpatient: RN or Physician to activate a stroke alert for onset of new stroke symptoms or with NIHSS increase >/= 3 points. Following change in neurological status, NIHSS will be performed per physician order or more frequently PRN. -1a. Level of Consciousness 0 - Alert; keenly responsive -1b. LOC Questions 0 - Answers BOTH questions correctly -1c. LOC Commands 0 - Performs BOTH tasks correctly -2. Best Gaze 0 - Normal -3. Visual 1 - Partial hemianopia -4. Facial Palsy 0 - Normal symmetrical movements -5a. Left Arm 0 - No drift; arm holds 90 ( or 45) degrees for full 10 seconds -5b. Right Arm 0 - No drift; arm holds 90 ( or 45) degrees for full 10 seconds -6a. Left Leg 0 - No drift; leg holds 30- degree position for full 5 seconds -6b. Right Leg 0 - No drift; leg holds 30- degree position for full 5 seconds -7. Limb Ataxia 0 - Absent -8. Sensory 0 - Normal; no sensory loss -9. Best Language 0 - No aphasia; normal -10. Dysarthria 0 - Normal -11. Extinction and Inattention 0 - No abnormality -Total 1 Query Text:A score of 0 is normal or asymptomatic. Total possible score is 42 . ED: Notify Physician for NIHSS increase by > / = 3 points. Inpatient: RN or Physician to activate a stroke alert for NIHSS increase of > / = 3 points. Coma Scale [Assess] -Eye Opening Spontaneous -Motor Obeys Commands -Verbal Oriented [Total] -Coma Scale Total 15
== END 2025-08-28 15:10 | disposition home or self-care (01) ==
LOC: ED 14:50 → PCU 15:13
PROVIDERS: Emergency Provider Emergency Medicine; PCP General Practice; Visit Provider Internal Medicine
DX: H34.12 Central retinal artery occlusion, left eye (principal); E66.813 Obesity, class 3; Z68.42 Body mass index [BMI] 45.0-49.9, adult; I89.0 Lymphedema, not elsewhere classified; I10 Essential (primary) hypertension; I16.1 Hypertensive emergency; I34.0 Nonrheumatic mitral (valve) insufficiency; Z79.82 Long term (current) use of aspirin; Z79.899 Other long term (current) drug therapy; F17.210 Nicotine dependence, cigarettes, uncomplicated
CPT/HCPCS: 70450; 70496; 70498; 70551; 80048; 80061; 82962; 84484; 85025; 85610; 85652; 85730; 86141; 93005; 93306; 94640; 96360; 96361; 97802; 99221; 99285; Q9957; Q9967; A4216; G0378